=== PATIENT | male | born 1990 | race Caucasian/White ===

== ENCOUNTER 2024-05-10 22:43 | Emergency (ER) | payer BC ==
[~2024-05-10] VITALS: Ht 165.1 cm; Wt 68.1 kg
[2024-05-10 22:45] VITALS: O2SAT 99
[2024-05-11] MEDS: DIPHENHYDRAMINE 50MG/ML VIAL IV ONE (00:05)
[2024-05-11] MEDS: DEXAMETHASONE 10 MG/ML VIAL IV ONE (00:06)
[2024-05-11] MEDS ORDERED: PRED10TA MT (01:04)
[2024-05-11 01:45] VITALS: BP 116/75; PULSE 69; RESP 20; TEMP 98.2
== END 2024-05-11 01:51 | disposition home or self-care (01) ==
LOC: ER 22:43
DX: T78.40XA Allergy, unspecified, initial encounter (principal); R06.02 Shortness of breath; F41.9 Anxiety disorder, unspecified; X58.XXXA Exposure to other specified factors, initial encounter
CPT/HCPCS: 82962; 71045; 93005; 99284; 96374; 96375; J1100; J1200; Z7610